=== PATIENT | male | born 1980 | race Caucasian/White ===

== ENCOUNTER 2019-12-14 00:35 | Emergency (ER) | payer MEDICAID ==
[~2019-12-14] VITALS: Ht 172.7 cm; Wt 90.7 kg
--- NOTE | 2019-12-14 00:36 | NUR ---
Note braulio in EDM - 12/14/19 at 0036 by [email or web address] ED Nurse Note: Patient brought ui PT BROUGHT IN BY [facility] [place] [employer] E[place] INTOX[place].
--- NOTE | 2019-12-14 00:36 | NUR ---
ED Nurse Note: Patient brought into the ED by ambulance [facility] 39 due to ETOH from a [facility]. Patient has a lump on the right side of the head. Patient is resistive to care. Patient denies to answer ERMD/RN's question. No N&V, CP/SOB/, fever and chills.
--- NOTE | 2019-12-14 00:42 | NUR ---
ED Nurse Note: ERMD at bedside
--- NOTE | 2019-12-14 00:51 | Emergency Room Report ---
History of Present Illness General Chief Complaint: To Be Triaged Source: Patient, EMS Present Illness HPI This is a 39-year-old with unknown past medical history. He presents with chief complaint of alcohol intoxication. He was at a green party and was drinking heavily. He was intoxicated and combative. People there called 911. Patient denies any complaint. Denies any drug use. History is limited because of his intoxication however. There is no trauma. Allergies: Coded Allergies: UNABLE TO ASSESS (Unverified , 12/14/19) COVID-19 Screening Contact w/high risk pt: No Experienced COVID-19 symptoms?: No COVID-19 Testing performed [employer]: No Patient History Past Medical History: see triage record, old chart reviewed Past Surgical History: none Pertinent Family History: none Social History: Reports: alcohol use Immunizations: other Reviewed Nursing Documentation: PMH: Agreed; PSxH: Agreed Nursing Documentation-PMH Past Medical History: No Stated History Review of Systems All Other Systems: limited - Secondary to intoxication Physical Exam Vital Signs Date Time Temp Pulse Resp B/P (MAP) Pulse Ox O2 Delivery O2 Flow Rate FiO2 12/14/19 00:30 97.5 116 22 132/79 (96) 98 Room Air Vitals normal Sp02 EP Interpretation: reviewed, normal General Appearance: well appearing, no apparent distress, alert, other - Intoxicated Head: normocephalic, atraumatic Eyes: bilateral eye PERRL, bilateral eye EOMI ENT: hearing grossly normal, normal pharynx Neck: full range of motion, supple, no meningismus Respiratory: chest non-tender, lungs clear, normal breath sounds Cardiovascular #1: regular rate, rhythm, no murmur Gastrointestinal: normal bowel sounds, non tender, no mass, no organomegaly, no bruit, non-distended Musculoskeletal: back normal, normal range of motion, gait/station normal Psychiatric: mood/affect normal Medical Decision Making Diagnostic Impression: Primary Impression: Alcohol intoxication Qualified Codes: F10.920 - Alcohol use, unspecified with intoxication, uncomplicated ER Course Patient with alcohol intoxication. Will observe until clinical sobriety. I see no trauma to warrant CT scan or x-ray. Last Vital Signs Date Time Temp Pulse Resp B/P (MAP) Pulse Ox O2 Delivery O2 Flow Rate FiO2 12/14/19 00:30 97.5 116 22 132/79 (96) 98 Room Air Status: improved Disposition: HOME, SELF-CARE Condition: Stable Additional Instructions: Abstain from drinking to excess. Follow-up with your doctor in 7 days. Return if worse. Lexa Chavis MD Dec 14, 2019 00:51
[2019-12-14 01:04] VITALS: BP 132/79
--- NOTE | 2019-12-14 02:30 | NUR ---
ED Nurse Note: Patient awake and alert sitting on bed. Able to answer questions. Food and drinks provided
--- NOTE | 2019-12-14 02:45 | NUR ---
ED Nurse Note: Insisted patient to stay to sober up, patient refused and wanted to leave.
[2019-12-14 03:17] VITALS: BP 131/79
--- NOTE | 2019-12-14 03:17 | NUR ---
ER DISCHARGE NOTE: Patient is cleared to be discharged per ERMD, pt is aox4, on room air, with stable vital signs. pt was given dc and prescription instructions, pt was able to verbalize understanding, pt id band removed. pt is able to ambulate with steady gait. pt took all belongings.
== END 2019-12-14 03:18 | disposition home or self-care (01) ==
LOC: EDBD 00:35 → EMR 00:55
DX: F10.129 Alcohol abuse with intoxication, unspecified (principal)
CPT/HCPCS: 99282